=== PATIENT | female | born 2000 | race Caucasian/White ===

== ENCOUNTER 2021-07-01 01:21 | Emergency (ER) | payer OTHER ==
[2021-07-01 01:30] VITALS: BP 144/92
[2021-07-01 01:57] LABS: BILIRUBIN,URINE NEGATIVE (NEGATIVE); GLUCOSE, URINE (UA) NEGATIVE (NEGATIVE); KETONES,URINE (UA) NEGATIVE (NEGATIVE); LEUKOCYTE ESTERASE, URINE MODERATE (NEGATIVE); NITRITE,URINE NEGATIVE (NEGATIVE); OCCULT BLOOD,URINE LARGE (NEGATIVE); PROTEIN,URINE 30 mg/dL (NEGATIVE); UROBILINOGEN,URINE 0.2 (NORMAL) E.U./dL (NORMAL)
[2021-07-01 02:03] LABS: CLARITY,URINE CLEAR (CLEAR); HCG UR QUAL NEGATIVE
[2021-07-01 02:04] LABS: BACTERIA,URINE Moderate /HPF (None Seen); SQUAMOUS EPITHELIAL CELL,UR FEW Squamous (<= Few)
--- NOTE | 2021-07-01 02:10 | ED Physician Documentation ---
PD HPI FEMALE - Stated complaint Stated Complaint: FEMALE - Chief complaint Chief Complaint: UTI - History obtained from History obtained from: Patient - History of Present Illness Timing - onset: How many hours ago (2-3 hours) Timing - details: Abrupt onset Pain level max: 7 Associated symptoms: Dysuria, Urinary frequency, Hematuria. No: Fever Contributing factors: No: Similar symptoms before: Diagnosis (similar to previous UTI) Recently seen: Not recently seen - Additional information Additional information: c/o sudden onset hematuria, urinary frequency and painful dysuria x 2-3 hours, similar to previous UTI. denies fever. 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 Other Past Medical History: UTI - Past Surgical History Past Surgical History: Yes Ortho: Other HEENT: Tonsil/Adenoidectomy - Present Medications Home Medications: Ambulatory Orders Medication Instructions Recorded Confirmed Etonogestrel [Nexplanon] 07/01/21 Nitrofurantoin [Macrobid] 100 mg PO BID #9 07/01/21 Phenazopyridine HCl [Pyridium] 200 mg PO TID PRN #6 tablet 07/01/21 - Allergies Allergies/Adverse Reactions: Allergies Allergy/AdvReac Type Severity Reaction Status Date / Time No Known Drug Allergies Allergy Verified 07/01/21 01:30 - Social History Does the pt smoke?: No Smoking Status: Never smoker Does the pt drink ETOH?: Yes - Immunizations Immunizations are current?: Yes - POLST Patient has POLST: No PD ED PE NORMAL - Vitals Vital signs reviewed: Yes - General General: Alert and oriented X 3, No acute distress, Well developed/nourished - Abdomen Abdomen: Soft, Non tender - Back Back: No CVA TTP Results - Vitals Vitals: Oxygen O2 Source Room air - Labs Labs: Laboratory Tests 07/01/21 01:35 Urine Color LT RED Urine Clarity CLEAR Urine pH 7.0 Ur Specific Wells <=1.005 Urine Protein 30 H Urine Glucose (UA) NEGATIVE Urine Ketones NEGATIVE Urine Occult Blood LARGE H Urine Nitrite NEGATIVE Urine Bilirubin NEGATIVE Urine Urobilinogen 0.2 (NORMAL) Ur Leukocyte Esterase MODERATE H Urine RBC 6-10 H Urine WBC 11-25 H Ur Squamous Epith Cells FEW Squamous Urine Bacteria Moderate H Ur Microscopic Review INDICATED Urine Culture Comments INDICATED Urine HCG, Qual NEGATIVE PD MEDICAL DECISION MAKING - ED course Complexity details: reviewed results, considered differential, d/w patient ED course: presents with symptoms consistent with UTI; UA micro with RBC, WBC, and moderate bacteria. will treat for UTI with macrobid and pyridium, first doses in ED and rx for these medications provided Departure - Departure Disposition: 01 Home, Self Care Clinical Impression: Urinary tract infection Condition: Good Instructions: ED UTI Cystitis Female Prescriptions: Nitrofurantoin [Macrobid] 100 mg PO BID #9 Phenazopyridine HCl [Pyridium] 200 mg PO TID PRN #6 tablet PRN Reason: dysuria Discharge Date/Time: 07/01/21 02:24
[2021-07-01] MEDS ORDERED: PHENAZOPYRIDINE 100 MG TABLET PO STA (02:17)
[2021-07-01] MEDS ORDERED: NITROFURANTOIN MACRO 100 MG CAPSULE PO STA (02:17)
== END 2021-07-01 02:24 | disposition home or self-care (01) ==
LOC: ED 01:21
DX: N39.0 Urinary tract infection, site not specified (principal); R31.29 Other microscopic hematuria
CPT/HCPCS: 81001; 81025; 87086; 87181; 99283; A9270; 81003